=== PATIENT | male | born 1960 | race Caucasian/White ===

== ENCOUNTER → 2020-09-17 14:06 | Outpatient (CLI) | payer OTHER, SELFPAY ==
[2020-09-17] MEDS: COVID-19 VACC #1, MRNA(MOD) 100 MCG/0.5 ML VIAL IM (14:13)
== END ==
PROVIDERS: Visit Provider Internal Medicine
DX: Z23 Encounter for immunization (principal)
CPT/HCPCS: 0011A; 91301

== ENCOUNTER → 2020-10-15 10:35 | Outpatient (CLI) | payer OTHER, SELFPAY ==
[2020-10-15] MEDS: COVID-19 VACC #2, MRNA(MOD) 100 MCG/0.5 ML VIAL IM (10:41)
== END ==
PROVIDERS: Visit Provider Internal Medicine
DX: Z23 Encounter for immunization (principal)
CPT/HCPCS: 0012A; 91301

== ENCOUNTER → 2023-10-05 14:07 | Outpatient (CLI) | payer OTHER, SELFPAY ==
[2023-10-05 16:04] LABS: Prostate Specific Antigen 2.79 ng/mL (0.10-4.00)
== END ==
PROVIDERS: PCP Physician Assistant; Referring Provider Specialist; Visit Provider Specialist
DX: N40.1 Benign prostatic hyperplasia with lower urinary tract symptoms (principal); N52.9 Male erectile dysfunction, unspecified; R97.20 Elevated prostate specific antigen [PSA]; K62.5 Hemorrhage of anus and rectum; Z87.442 Personal history of urinary calculi
CPT/HCPCS: 36415; 84153; 99215

== ENCOUNTER 2024-01-06 11:07 | Day surgery (SDC) | payer OTHER, SELFPAY ==
--- NOTE | 2024-01-06 | PATH_ITS ---
[facility] Accession Number: [id number] No. of containers..01 Tissue . 01 Material submitted: . colon - TRANSVERSE COLON POLYP . 01 Diagnosis: TRANSVERSE COLON, POLYP: Tubular adenoma. [facility] 01/10/2024 0844 Local . 01 Electronically signed: . Sammi Baron MD, Pathologist NPI- [id number] . 01 Gross description: . Received in formalin, labeled with two patient identifiers and transverse colon polyp, are two gutierrez soft tissue fragments measuring 0.5-0.6 cm in greatest dimension. Submitted in cassette A1. ([id number]) /FRR 01/07/2024 1446 Local . 01 Pathologist provided ICD-10: D12.3 . 01 CPT . 776858 Specimen Comment: A courtesy copy of this report has been sent to [phone] Performed at: [address] [facility] [id number] MD Vaibhav Levi MD Phone: [phone]
[2024-01-06 11:37] VITALS: BP 130/87; PULSE 82; RESP 13; TEMP 36.5; O2SAT 95
[2024-01-06] MEDS: LACTATED RINGERS 1,000 ML 42 ML IV (11:48)
--- NOTE | 2024-01-06 12:47 | P.HP_ITS ---
History of Present Illness History of Present Illness Date Patient Seen: 01/06/24 Time Patient Seen: 12:47 Chief complaint: Colonoscopy Narrative: 63-year-old man with rectal bleeding here for diagnostic colonoscopy possible hemorrhoidal banding. No interval change in health. 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 Smoking Status: Never smoker alcohol intake: current substance use type: does not use caffeine: Yes Type(s) of exercise: walking frequency: 3-4 times per week duration: 45-60 minutes/day Meds Home Medications and Allergies Home Medications Medication Instructions Recorded Confirmed Type atorvastatin 40 mg tablet 40 mg PO DAILY 10/05/23 01/06/24 History carvedilol 6.25 mg tablet 6.25 mg PO BID 10/05/23 01/06/24 History losartan 50 mg tablet 50 mg PO BID 10/05/23 01/06/24 History tadalafil 20 mg tablet 20 mg PO DAILY PRN Sexual Activity 10/05/23 10/20/23 History alfuzosin 10 mg tablet,extended 10 mg PO DAILY #90 tabs 10/11/23 01/06/24 Rx release 24 hr (Uroxatral) sodium sul 1.479 gram-potas ch See Rx Instructions PO PER PKG DIR 12/05/23 01/06/24 Rx 0.188 gram-magnes sul 0.225 gram #24 tabs tablet (Sutab) Allergies Allergy/AdvReac Type Severity Reaction Status Date / Time No Known Drug Allergies Allergy Verified 01/06/24 11:32 Exam Vital Signs (past 8 hours): - 01/06/24 11:37 Temperature 97.7 F Pulse Rate 82 Respiratory Rate 13 Blood Pressure 130/87 Pulse Oximetry 95 Oxygen Delivery Method Room Air Oxygen Delivery Method Room Air Narrative Exam Narrative: General adult man alert oriented no acute distress Chest nonlabored respiration Extremities warm well perfused Assessment & Plan Assessment & Plan narrative: 63-year-old man with rectal bleeding here for diagnostic colonoscopy possible hemorrhoidal banding. Technical details were discussed. Risks, benefits, alte rnatives explained. Risks including but not limited to myocardial infarction, aspiration, bleeding, pain, missed lesion, incomplete examination, need for further radiographic studies, intestinal injury, and need for major abdominal surgery were discussed. All questions were answered to their satisfaction, and they are in agreement with this plan. Time-Based Coding :: [TOTAL MINUTES] spent with patient and on the chart (including review of chart, obtaining history, exam, reviewing outside data, placing orders, documenting exam and treatment plan, and counseling patient) on [DATE].
[2024-01-06 13:19] VITALS: BP 104/57; PULSE 73; RESP 10; TEMP 36.3; O2SAT 98
[2024-01-06 13:23] VITALS: BP 106/64; PULSE 68; RESP 13; O2SAT 98
--- NOTE | 2024-01-06 13:23 | P.OP.COLON_ITS ---
Operative Date/Time/Diagnoses Date of procedure: 01/06/24 Time of procedure: 13:23 Pre-op diagnosis: Rectal bleeding Post-op diagnosis: other (Colonic polyp x1. Internal hemorrhoids) Procedure & Clinicians Study performed: Diagnostic colonoscopy and hemorrhoidal banding Same procedure as scheduled: Yes Indications: Rectal bleeding Surgeon: Stas Garay Procedure Notes Procedure in detail: The history and physical was performed/updated and the patient is ASA class is 2. The procedure was discussed in detail with the patient. Potential risks complications including infection, bleeding, missed diagnosis, perforation, need for surgery, and were explained. Their questions were answered and informed consent was obtained. Patient was brought to the procedure room and placed standard monitoring equipment. The patient's vital signs were monitored continuously throughout the entire procedure. Prior to starting time-out was performed. The patient was placed in the left lateral recumbent position. Procedural sedation was ad ministered by anesthesia. Examination began with a thorough inspection of the perianal area there was no evidence of fissures, fistulae, external hemorrhoids or cutaneous malignancy. The colonoscopy scope was then placed into the anal canal and was advanced to the cecum, which was identified by the ileocecal valve, the appendiceal orifice and the confluence of the taenia. The scope was then slowly withdrawn examining colon thoroughly in all directions, irrigating it of any residual stool. The scope was retroflexed within the rectum The patient tolerated the procedure well. They will be discharged once criteria are met. The prep was of good/excellent quality. The withdrawl time was 7 minutes. FINDINGS * Transverse colonic polyp 1 cm removed with cold snare Following completion of the colonoscopy we proceeded with hemorrhoidal banding. Anoscope was placed. Two hemorrhoidal pedicles were identified grade 2. Each pedicle was grasped with a suction device and then doubly ligated at their base. He tolerated the procedure well. Specimen(s): other (Transverse colonic polyp) Impression: Internal hemorrhoids and colonic polyp x1 Post-procedure Recommendations: High fiber diet Plan for aftercare: Follow up is dependent on pathology findings likely 5 years Disposition: same day surgery
[2024-01-06 13:28] VITALS: BP 107/67; PULSE 65; RESP 18; TEMP 36.3; O2SAT 97
== END 2024-01-06 13:44 | disposition home or self-care (01) ==
PROVIDERS: PCP Physician Assistant; Referring Provider Surgery; Visit Provider Surgery
PROC: 0DJD8ZZ Inspection of Lower Intestinal Tract, Via Natural or Artificial Opening Endoscopic (ICD-10-PCS; CPT 45378; principal; 2024-01-06 12:30)
DX: K62.5 Hemorrhage of anus and rectum (principal); K64.1 Second degree hemorrhoids; D12.3 Benign neoplasm of transverse colon
CPT/HCPCS: 45385; 46221